=== PATIENT | female | born 1940 | race Caucasian/White ===

== ENCOUNTER 2020-12-29 02:30 | Emergency (ER) | payer OTHER ==
[~2020-12-29 02:30] MED LIST: PHENERGAN25 M1 PO
[2020-12-29] MEDS ORDERED: NORCO 5-325 TA1 EACH PO (03:25)
== END 2020-12-29 03:36 | disposition home or self-care (01) ==
LOC: FER 02:30
DX: S43.015A Anterior dislocation of left humerus, initial encounter (principal); E11.9 Type 2 diabetes mellitus without complications; X58.XXXA Exposure to other specified factors, initial encounter; Y92.009 Unspecified place in unspecified non-institutional (private) residence as the place of occurrence of the external cause
CPT/HCPCS: 73020; 73030; J2704